=== PATIENT | female | born 1995 | race Caucasian/White ===

== ENCOUNTER 2016-11-13 16:52 | Emergency (ER) | payer OTHER ==
[2016-11-13 17:59] LABS: Hematocrit 32 % (35-47); Hemoglobin 10.7 g/dl (12.0-16.0); Mean Corpuscular HGB Conc 33 g/dl (31-36); Mean Corpuscular Hemoglobin 28 pg (27-31); Mean Corpuscular Volume 83 fL (80-97); Mean Platelet Volume 9 um3 (7.4-10.4); Red Blood Count 3.89 10^6/ul (4.0-5.4); Red Cell Distribution Width 14 % (10.5-15)
[2016-11-13 18:16] LABS: ALT 19 U/L (7-52); AST 21 U/L (13-39); Albumin 4.2 g/dL (3.2-5.2); Alkaline Phosphatase 66 U/L (34-104); Anion Gap 10 mmol/L (2-11); BUN/Creatinine Ratio 14.3 (8-20); Blood Urea Nitrogen 9 mg/dL (6-24); CO2 Carbon Dioxide 25 mmol/L (22-32); Calcium 9.7 mg/dL (8.6-10.3); Chloride 100 mmol/L (101-111); EGFR African American 154.9 (>60); EGFR Non-African American 120.5 (>60); Globulin 4.1 g/dL (2-4); Glucose 124 mg/dL (70-100); Potassium 3.5 mmol/L (3.5-5.0); Sodium 135 mmol/L (133-145); Total Protein 8.3 g/dL (6.4-8.9)
[2016-11-13] MEDS ORDERED: Iohexol 300* (CONTRAST) 10 ML SDV IV ONE (18:29)
[2016-11-13] MEDS ORDERED: Ibuprofen TAB* 600 MG PO ONE (18:49)
--- NOTE | 2016-11-13 18:49 | ED ---
Throat Pain/Nasal Congestion - HPI Summary HPI Summary: 21 female presents to ED from [facility] with complaints of left sided cheek/facial swelling and hard mass that began 3 weeks ago and has not resolved. Patient states she is on week 2 of clindamycin and applying cool compresses without relief. Patient has been experiencing fevers of 100-102 over the past 5-[address] of face back when it first began without findings other than "soft tissue swelling". Also had appointment with oral surgeon who stated it was not related to her dentition. States she was studying abroad in [facility] over the summer and about 1 week later patient developed the facial swelling. Is currently being worked up with autoimmune disorder but has not specifically been diagnosed with anything. Mother is a hospitalist and was able to inform of PMHx. Patient also has iron deficiency anemia. No other PMHx. Patient states sometimes the mass becomes painful and other times it does not. She also states it moves and has changed in size, getting bigger more recently. Denies difficulty swallowing, difficulty breathing, headache, visual changes, sputum production changes, and discharge. Admits to some intermittent erythema on overlying skin, not currently experiencing. No other symptoms or complaints. Immunizations are UTD. - History of Current Complaint Chief Complaint: EDGeneral Time Seen by Provider: 11/13/16 18:01 Hx Obtained From: Patient Onset/Duration: Sudden Onset, Lasting Weeks, Still Present, Worse Since Severity: Moderate Cough: None - Epiglottits Risk Factors Epiglottis Risk Factors: Negative - Allergies/Home Medications Allergies/Adverse Reactions: Allergies Allergy/AdvReac Type Severity Reaction Status Date / Time peanut Allergy Airway Uncoded 11/13/16 19:36 Obstruction PMH/Surg Hx/FS Hx/Imm Hx Endocrine/Hematology History: Reports: Hx Anemia, Autoimmune Disease - no specific dx, has been worked up since age 5 Denies: Hx Diabetes Respiratory History: Denies: Hx Asthma - Surgical History Surgery Procedure, Year, and Place: "wisdom teeth out" - Immunization History Immunizations Up to Date: Yes Infectious Disease History: No Infectious Disease History: Reports: Traveled Outside the [place] in Last 30 Days - [place] [facility], came back beginning of october 2016 - Family History Known Family History: Positive: None - Social History Alcohol Use: None Substance Use Type: Reports: None Smoking Status (MU): Never Smoked Tobacco Review of Systems Constitutional: Negative Positive: Fever, Fatigue Eyes: Negative Positive: Other - facial swelling, left cheek mass Cardiovascular: Negative Respiratory: Negative Gastrointestinal: Negative Musculoskeletal: Negative Skin: Negative All Other Systems Reviewed And Are Negative: Yes Physical Exam Triage Information Reviewed: Yes Vital Signs On Initial Exam: Initial Vitals Temp Pulse Resp BP Pulse Ox 100.8 F 110 18 110/71 98 11/13/16 17:02 11/13/16 17:02 11/13/16 17:02 11/13/16 17:02 11/13/16 17:02 tachycardia and fever noted, given ibuprofen Vital Signs Reviewed: Yes Appearance: Positive: Well-Appearing, No Pain Distress, Well-Nourished Skin: Positive: Warm, Skin Color Reflects Adequate Perfusion, Dry. Negative: Cold, Cyanosis @, Pale, Erythema @ Head/Face: Positive: Normal Head/Face Inspection - other than facial swelling left mandible/maxillary area, firm mass palpated, no erythema or discharge, non tender to touch Eyes: Positive: Normal, EOMI, JULES, Conjunctiva Clear ENT: Positive: Hearing grossly normal, Pharynx normal, TMs normal, Other - able to open mouth however difficult/limited due to swelling. Negative: Pharyngeal erythema, Nasal congestion, Nasal drainage, TM bulging, TM dull, TM red, Tonsillar swelling, Tonsillar exudate, Trismus, Muffled/hoarse voice, Dental tenderness Dental: Positive: Oropharynx - normal. Negative: Percussion Tenderness @, Gross Decay/Caries @, Dental Fracture @, Abscess @, Cellulitis @ Neck: Positive: Supple, Nontender, No Lymphadenopathy Respiratory/Lung Sounds: Positive: Clear to Auscultation, Breath Sounds Present. Negative: Decreased Breath Sounds, Rales, Rhonchi Cardiovascular: Positive: Normal, RRR, Pulses are Symmetrical in both Upper and Lower Extremities, Tachycardia. Negative: Murmur, Rub Abdomen Description: Positive: Nontender, No Organomegaly, Soft Bowel Sounds: Positive: Present Musculoskeletal: Positive: Normal, Strength/ROM Intact Neurological: Positive: Normal, Sensory/Motor Intact, Alert, Oriented to Person Place, Time, CN Intact II-III, Reflexes Intact, NV Bundle Intact Distally, Normal Gait Psychiatric: Positive: Affect/Mood Appropriate - Lowes Coma Scale Coma Scale Total: 14 Diagnostics - Vital Signs Vital Signs Temp Pulse Resp BP Pulse Ox 11/13/16 17:21 100.3 F 115 16 106/74 99 11/13/16 17:02 100.8 F 110 18 110/71 98 - Laboratory Lab Results: Lab Results 11/13/16 11/13/16 11/13/16 Range/Units 17:47 17:47 17:47 WBC 11.0 H (3.5-10.8) 10^3/ul RBC 3.89 L (4.0-5.4) 10^6/ul Hgb 10.7 L (12.0-16.0) g/dl Hct 32 L (35-47) % MCV 83 (80-97) fL MCH 28 (27-31) pg MCHC 33 (31-36) g/dl RDW 14 (10.5-15) % Plt Count 311 (150-450) 10^3/ul MPV 9 (7.4-10.4) um3 Neut % (Auto) 79.8 (38-83) % Lymph % (Auto) 12.4 L (25-47) % Mitchell % (Auto) 7.3 (1-9) % Eos % (Auto) 0.2 (0-6) % Baso % (Auto) 0.3 (0-2) % Absolute Neuts (auto) 8.8 H (1.5-7.7) 10^3/ul Absolute Lymphs (auto) 1.4 (1.0-4.8) 10^3/ul Absolute Monos (auto) 0.8 (0-0.8) 10^3/ul Absolute Eos (auto) 0 (0-0.6) 10^3/ul Absolute Basos (auto) 0 (0-0.2) 10^3/ul Absolute Nucleated RBC 0 10^3/ul Nucleated RBC % 0 Sodium 135 (133-145) mmol/L Potassium 3.5 (3.5-5.0) mmol/L Chloride 100 L (101-111) mmol/L Carbon Dioxide 25 (22-32) mmol/L Anion Gap 10 (2-11) mmol/L BUN 9 (6-24) mg/dL Creatinine 0.63 (0.51-0.95) mg/dL Est GFR ( Amer) 154.9 (>60) Est GFR (Non-Af Amer) 120.5 (>60) BUN/Creatinine Ratio 14.3 (8-20) Glucose 124 H (70-100) mg/dL Lactic Acid 1.6 (0.5-2.0) mmol/L Calcium 9.7 (8.6-10.3) mg/dL Total Bilirubin 0.50 (0.2-1.0) mg/dL AST 21 (13-39) U/L ALT 19 (7-52) U/L Alkaline Phosphatase 66 (34-104) U/L C-React Prot High Sens 89.70 mg/L Total Protein 8.3 (6.4-8.9) g/dL Albumin 4.2 (3.2-5.2) g/dL Globulin 4.1 H (2-4) g/dL Albumin/Globulin Ratio 1.0 (1-3) Beta HCG, Quant < 0.60 mIU/mL Result Diagrams: 11/13/16 17:47 11/13/16 17:47 Lab Statement: Any lab studies that have been ordered have been reviewed, and results considered in the medical decision making process. - CT maxillofacial w CT Interpretation: Positive (See Comments) - Extensive nonspecific soft tissue edema at the LEFT face beginning below the malar eminence and extending through the chin with involvement of the subcutaneous fat as well as the platysma muscle and buccal space. No loculated abscess collection evident. Negative for soft tissue plane emphysema. CT Interpretation Completed By: Radiologist Re-Evaluation - Re-Evaluation First Eval Re-Evaluation Time: 20:50 Change: Unchanged - patient still feeling ok, fever was better after ibuprofen. updated on results and plan, is in agreement and understands EENT Course/Dx - Course Course Of Treatment: labs, blood culture and CT maxillofacial obtained. Labs unremarkable besides patient's chronic iron deficiency anemia. given ibuprofen for fever/swelling. immunizations are UTD. CT showed soft tissue swelling involving muscle and subcutaneous fat. Spoke with Dr Hummel about patient consult, as well as patient, who feel labwork results, patient's ability for close follow up and presentation of patient that she is safe for discharge to follow up, ENT, Rhuem and Infectious disease. Has appointment with ENT friday and rheumatology on Friday. [facility]. Spoke with Dr Collado from [facility] at 9:00pm who was updated and is also in agreement with this plan. Patient is aware of worsening signs and symptoms to watch out for and to return if occur. Complete clindamycin last few doses, ibuprofen/tylenol and cool compresses. - Differential Diagnoses Differential Diagnoses: Dental Abscess, Other - mumps, parotiditis, - Diagnoses Provider Diagnoses: Swelling of left side of face - Provider Notifications Discussed Care Of Patient With: Dr Hummel Time Discussed With Above Provider: 20:50 Instructed by Provider To: Have Pt Call For Appt. - with infectious disease, safe to d/c Discharge - Discharge Plan Condition: Stable Disposition: HOME Referrals: [facility] [Primary Care Provider] - Jeanne WILLINGHAM,Dylan Carnes [Medical Doctor] - Additional Instructions: Please make an appointment and follow up with infectious disease PATRICIA. Be sure to go to ENT and Rheumatology appointment as scheduled. Continue follow up with [facility]. Continue clindamycin and cold compresses. Ibuprofen/tylenol for fever and pain. New symptoms or worsening symptoms please seek medical attention immediately, as discussed.
--- NOTE | 2016-11-13 20:26 | RAD ---
INDICATION: Swollen LEFT cheek for unknown reason. On antibiotics without response. COMPARISON: No relevant prior exams available on the [facility] for comparison. TECHNIQUE: Multidetector CT base of the skull through mandible with 75 mL Omnipaque 300 IV contrast. Multiplanar reformation. REPORT: Artifact from dental amalgam. Extensive soft tissue edema at the LEFT face beginning below the malar eminence and extending through the chin with involvement of the subcutaneous fat as well as the platysma muscle and buccal space. No loculated abscess collection evident. Negative for soft tissue plane emphysema. Unremarkable parotid and submandibular glands. Unremarkable partially visualized thyroid gland. Negative for lymphadenopathy by short axis size criteria. Unremarkable pharyngeal mucosal space contours as well as the false and true vocal cords and visualized subglottic airway. Symmetric unremarkable parapharyngeal fat. Patent bilateral internal jugular veins. The orbital and maxillary sinus margins, zygomatic arches, lamina papyracea, base of the maxilla, pterygoid plates, and nasal bones are intact. The mandible is intact. Normal temporal mandibular joint alignment. No focal osseous lesions evident. Unremarkable orbital contents. No abnormality of the visualized brain through the level of the thalami superiorly. Clear paranasal sinuses and mastoid air spaces. IMPRESSION: Extensive nonspecific soft tissue edema at the LEFT face beginning below the malar eminence and extending through the chin with involvement of the subcutaneous fat as well as the platysma muscle and buccal space. No loculated abscess collection evident. Negative for soft tissue plane emphysema.
[2016-11-13 21:26] VITALS: BP 101/67
== END 2016-11-13 21:25 | disposition home or self-care (01) ==
LOC: ED 16:52
DX: R22.0 Localized swelling, mass and lump, head (principal); R50.9 Fever, unspecified; R53.83 Other fatigue; Z86.2 Personal history of diseases of the blood and blood-forming organs and certain disorders involving the immune mechanism
CPT/HCPCS: 36415; 70487; 80053; 83605; 84702; 85025; 86141; 87040; 99282; A9270-GY; Q9967

== ENCOUNTER 2017-04-04 17:25 | Emergency (ER) | payer OTHER ==
[2017-04-04] MEDS ORDERED: NS 0.9% 1000 ML* 1,000 ML IV ONE (17:45)
[2017-04-04] MEDS ORDERED: Ondansetron INJ* 2 MG/ML VIAL IV ONE (17:45)
[2017-04-04] MEDS ORDERED: Morphine INJ* 4 MG/ML 1 ML CARPUJECT IV ONE (17:45)
[2017-04-04 18:19] LABS: ABS Basophils 0 10^3/ul (0-0.2); ABS Eosinophils 0.1 10^3/ul (0-0.6); ABS Lymphocytes 1.4 10^3/ul (1.0-4.8); ABS Monocytes 0.6 10^3/ul (0-0.8); ABS Neutrophils 5.9 10^3/ul (1.5-7.7); ABS Nucleated RBC 0 10^3/ul; Eosinophil % 0.9 % (0-6); Hematocrit 35 % (35-47); Hemoglobin 11.8 g/dl (12.0-16.0); Lymphocyte % 17.8 % (25-47); Mean Corpuscular HGB Conc 34 g/dl (31-36); Mean Corpuscular Hemoglobin 28 pg (27-31); Mean Corpuscular Volume 84 fL (80-97); Mean Platelet Volume 10 um3 (7.4-10.4); Nucleated Red Blood Cells % 0.1; Platelet Count 208 10^3/ul (150-450); Red Blood Count 4.17 10^6/ul (4.0-5.4); Red Cell Distribution Width 13 % (10.5-15); White Blood Count 8.1 10^3/ul (3.5-10.8)
[2017-04-04 18:37] LABS: INR 1.11 (0.77-1.02)
[2017-04-04 18:38] LABS: EGFR Non-African American 112.2 (>60)
[2017-04-04] MEDS ORDERED: Iohexol 300* (CONTRAST) 10 ML SDV IV ONE (19:05)
[2017-04-04 20:32] VITALS: BP 104/67
--- NOTE | 2017-04-04 20:40 | RAD ---
Indication: Right lower quadrant pain. Contrast: Administered 73.1 ml of OMNIPAQUE 300 mg/ml CT of the abdomen and pelvis was performed after oral and IV contrast administration. Coronal and sagittal reconstructed images were obtained. The lung bases demonstrate no pleural fluid, nodules or masses. Heart is of normal size without evidence of pericardial effusion. Liver is normal in size. No focal lesions or intrahepatic duct dilatation is noted. The gallbladder demonstrates no calcified gallstones. No pericholecystic fluid or wall thickening. The pancreas demonstrates no mass or pancreatic duct dilatation. The spleen is normal in size. No adrenal lesions are noted. The kidneys demonstrate symmetric nephrograms. No hydronephrosis is noted. No retroperitoneal lymphadenopathy noted. Aorta and inferior vena cava are unremarkable. The appendix is retrocecal in nature and appears to be within normal limits with contrast and air noted within the appendix. There is a contrast and air-filled stomach. There is circumferential wall thickening of the gastric antrum and the possibility of antral gastritis should BE considered. The uterus and ovaries are unremarkable. The urinary bladder is distended. No free fluid is identified. IMPRESSION: Normal appendix. Air and contrast filled stomach with circumferential wall thickening of the gastric antrum. The possibility of antral gastritis should BE considered.
[2017-04-04 21:38] LABS: Urine Appearance Cloudy; Urine Blood 3+ (Negative); Urine Color Straw; Urine Ketones Negative (Negative); Urine Protein Negative (Negative); Urine Specific Gravity 1.018 (1.010-1.030); Urine Urobilinogen Negative (Negative)
[2017-04-04] MEDS ORDERED: Levofloxacin TAB* 500 MG PO ONE (21:42)
--- NOTE | 2017-04-04 21:52 | ED ---
Chuy Dominguez Jennifer, scribed for Juve Horton on 04/04/17 at 1815 . Abdominal Pain/Female - HPI Summary HPI Summary: The patient is a 21 year old female who presents at the ED with extreme stabbing pain in the lower abdomen that began 1.5 hours ago. She describes the pain as an 8/10 that comes in waves. She additionally complains of vomiting, dizziness, and nausea. The patient has a history of an uncharacterized autoimmune disease, Crohns disease, anemia, and kidney stones. - History of Current Complaint Chief Complaint: EDAbdPain Stated Complaint: ABD PAIN Time Seen by Provider: 04/04/17 17:34 Hx Obtained From: Patient, Family/Plant [employer] - Mother was on the phone Hx Last Menstrual Period: "March" Onset/Duration: Lasting Hours - 1.5 hours ago Timing: Constant Severity Initially: Severe Severity Currently: Severe Pain Intensity: 8 Pain Scale Used: 0-10 Numeric Location: Discrete At: LUQ, Discrete At: LLQ Radiates: No Character: Sharp Aggravating Factor(s): Nothing Alleviating Factor(s): Nothing Associated Signs and Symptoms: Positive: Other: - Vomiting, dizziness, nausea Allergies/Adverse Reactions: Allergies Allergy/AdvReac Type Severity Reaction Status Date / Time peanut Allergy Airway Uncoded 11/13/16 19:36 Obstruction PMH/Surg Hx/FS Hx/Imm Hx Endocrine/Hematology History: Reports: Hx Anemia Denies: Hx Diabetes Respiratory History: Denies: Hx Asthma - Surgical History Surgery Procedure, Year, and Place: "wisdom teeth out" Infectious Disease History: No Infectious Disease History: Denies: Traveled Outside the [place] in Last 30 Days - Family History Known Family History: Positive: Diabetes - Social History Alcohol Use: None Substance Use Type: Reports: None Smoking Status (MU): Never Smoked Tobacco Review of Systems Positive: Abdominal Pain, Vomiting, Nausea Neurological: Other - Dizziness All Other Systems Reviewed And Are Negative: Yes Physical Exam - Summary Physical Exam Summary: Appearance: Well appearing, no pain distress Skin: warm, dry, reflects adequate perfusion Head/face: normal Eyes: EOMI, JULES ENT: normal Neck: supple, non-tender Respiratory: CTA, breath sounds present Cardiovascular: RRR, pulses symmetrical Abdomen: Tenderness of the right and left lower quadrant. soft Bowel: present Musculoskeletal: normal, strength/ROM intact Neuro: normal, sensory motor intact, A&Ox3 Triage Information Reviewed: Yes Vital Signs On Initial Exam: Initial Vitals Temp Pulse Resp BP Pulse Ox 98.7 F 104 18 91/56 99 04/04/17 17:26 04/04/17 17:26 04/04/17 17:26 04/04/17 17:26 04/04/17 17:26 Vital Signs Reviewed: Yes Diagnostics - Vital Signs Vital Signs Temp Pulse Resp BP Pulse Ox 04/04/17 17:36 88 98 04/04/17 17:35 105/65 04/04/17 17:26 98.7 F 104 18 /56 99 - Laboratory Lab Results: Lab Results 04/04/17 04/04/17 04/04/17 Range/Units 18:02 18:02 18:02 WBC 8.1 (3.5-10.8) 10^3/ul RBC 4.17 (4.0-5.4) 10^6/ul Hgb 11.8 L (12.0-16.0) g/dl Hct 35 (35-47) % MCV 84 (80-97) fL MCH 28 (27-31) pg MCHC 34 (31-36) g/dl RDW 13 (10.5-15) % Plt Count 208 (150-450) 10^3/ul MPV 10 (7.4-10.4) um3 Neut % (Auto) 73.4 (38-83) % Lymph % (Auto) 17.8 L (25-47) % Castro % (Auto) 7.4 (1-9) % Eos % (Auto) 0.9 (0-6) % Baso % (Auto) 0.5 (0-2) % Absolute Neuts (auto) 5.9 (1.5-7.7) 10^3/ul Absolute Lymphs (auto) 1.4 (1.0-4.8) 10^3/ul Absolute Monos (auto) 0.6 (0-0.8) 10^3/ul Absolute Eos (auto) 0.1 (0-0.6) 10^3/ul Absolute Basos (auto) 0 (0-0.2) 10^3/ul Absolute Nucleated RBC 0 10^3/ul Nucleated RBC % 0.1 INR (Anticoag Therapy) 1.11 H (0.77-1.02) APTT 29.5 (26.0-36.3) seconds Sodium 136 (133-145) mmol/L Potassium 3.5 (3.5-5.0) mmol/L Chloride 104 (101-111) mmol/L Carbon Dioxide 23 (22-32) mmol/L Anion Gap 9 (2-11) mmol/L BUN 9 (6-24) mg/dL Creatinine 0.67 (0.51-0.95) mg/dL Est GFR ( Amer) 144.3 (>60) Est GFR (Non-Af Amer) 112.2 (>60) BUN/Creatinine Ratio 13.4 (8-20) Glucose 99 (70-100) mg/dL Lactic Acid (0.5-2.0) mmol/L Calcium 9.0 (8.6-10.3) mg/dL Total Bilirubin 0.50 (0.2-1.0) mg/dL AST 19 (13-39) U/L ALT 12 (7-52) U/L Alkaline Phosphatase 53 (34-104) U/L C-Reactive Protein < 1.00 (< 5.00) mg/L Total Protein 7.2 (6.4-8.9) g/dL Albumin 4.3 (3.2-5.2) g/dL Globulin 2.9 (2-4) g/dL Albumin/Globulin Ratio 1.5 (1-3) Lipase 15 (11.0-82.0) U/L Beta HCG, Quant 0.75 mIU/mL Urine Color Urine Appearance Urine pH (5-9) Ur Specific [place] (1.010-1.030) Urine Protein (Negative) Urine Ketones (Negative) Urine Blood (Negative) Urine Nitrate (Negative) Urine Bilirubin (Negative) Urine Urobilinogen (Negative) Ur Leukocyte Esterase (Negative) Urine WBC (Auto) (Absent) Urine RBC (Auto) (Absent) Ur Squamous Epith Cells (Absent) Urine Bacteria (Absent) Urine Glucose (Negative) 04/04/17 04/04/17 Range/Units 18:02 20:30 WBC (3.5-10.8) 10^3/ul RBC (4.0-5.4) 10^6/ul Hgb (12.0-16.0) g/dl Hct (35-47) % MCV (80-97) fL MCH (27-31) pg MCHC (31-36) g/dl RDW (10.5-15) % Plt Count (150-450) 10^3/ul MPV (7.4-10.4) um3 Neut % (Auto) (38-83) % Lymph % (Auto) (25-47) % Castro % (Auto) (1-9) % Eos % (Auto) (0-6) % Baso % (Auto) (0-2) % Absolute Neuts (auto) (1.5-7.7) 10^3/ul Absolute Lymphs (auto) (1.0-4.8) 10^3/ul Absolute Monos (auto) (0-0.8) 10^3/ul Absolute Eos (auto) (0-0.6) 10^3/ul Absolute Basos (auto) (0-0.2) 10^3/ul Absolute Nucleated RBC 10^3/ul Nucleated RBC % INR (Anticoag Therapy) (0.77-1.02) APTT (26.0-36.3) seconds Sodium (133-145) mmol/L Potassium (3.5-5.0) mmol/L Chloride (101-111) mmol/L Carbon Dioxide (22-32) mmol/L Anion Gap (2-11) mmol/L BUN (6-24) mg/dL Creatinine (0.51-0.95) mg/dL Est GFR ( Amer) (>60) Est GFR (Non-Af Amer) (>60) BUN/Creatinine Ratio (8-20) Glucose (70-100) mg/dL Lactic Acid 2.0 (0.5-2.0) mmol/L Calcium (8.6-10.3) mg/dL Total Bilirubin (0.2-1.0) mg/dL AST (13-39) U/L ALT (7-52) U/L Alkaline Phosphatase (34-104) U/L C-Reactive Protein (< 5.00) mg/L Total Protein (6.4-8.9) g/dL Albumin (3.2-5.2) g/dL Globulin (2-4) g/dL Albumin/Globulin Ratio (1-3) Lipase (11.0-82.0) U/L Beta HCG, Quant mIU/mL Urine Color Straw Urine Appearance Cloudy Urine pH 8.0 (5-9) Ur Specific [place] 1.018 (1.010-1.030) Urine Protein Negative (Negative) Urine Ketones Negative (Negative) Urine Blood 3+ H (Negative) Urine Nitrate Negative (Negative) Urine Bilirubin Negative (Negative) Urine Urobilinogen Negative (Negative) Ur Leukocyte Esterase Trace H (Negative) Urine WBC (Auto) 2+(11-20/hpf) H (Absent) Urine RBC (Auto) 3+(>10/hpf) H (Absent) Ur Squamous Epith Cells Present H (Absent) Urine Bacteria Absent (Absent) Urine Glucose Negative (Negative) Result Diagrams: 04/04/17 18:02 04/04/17 18:02 Lab Statement: Any lab studies that have been ordered have been reviewed, and results considered in the medical decision making process. - CT CT Abdomen/Pelvis CT Interpretation: No Acute Changes - Normal appendix. Air and contrast filled stomach with circumferential wall thickening of the gastric antrum. The possibility of antral gastritis should BE considered. Dr. Horton has reviewed this report. CT Interpretation Completed By: Radiologist Abdominal Pain Fem Course/Dx - Course Course Of Treatment: The patient is a 21 year old female who presents at the ED with extreme stabbing pain in the lower abdomen that began 1.5 hours ago. In the ED, the patient was given IV fluids, Levaquin, Morphine, and Zofran. Bloodwork and Urinalysis were obtained. The patient was diagnosed with UTI and dysmenorrhea. She will be discharged and advised to follow up with her primary care physician. - Diagnoses Differential Diagnosis: Positive: Appendicitis, Constipation, Diverticulitis, Ovarian Cyst, Pancreatitis, Renal Colic, Urinary Tract Infection Provider Diagnoses: UTI (urinary tract infection), Dysmenorrhea Discharge - Discharge Plan Condition: Stable Disposition: HOME Prescriptions: Levofloxacin TAB* [Levaquin TAB*] 500 mg PO DAILY #4 tab Naproxen [Naproxen 500 mg] 500 mg PO Q8H PRN #20 tab MDD 3 PRN Reason: Pain Ondansetron [Zofran 4 MG Odt] 4 mg PO TID #15 tab Patient Education Materials: Dysmenorrhea (ED), Urinary Tract Infection in Women (ED) Referrals: [facility] [Primary Care Provider] - 3 Days Additional Instructions: Follow up with your primary care physician in three days. Return to the emergency department for any new or worsening symptoms. The documentation as recorded by the Chuy barrow Jennifer accurately reflects the service I personally performed and the decisions made by , Juve Horton.
== END 2017-04-04 22:10 | disposition home or self-care (01) ==
LOC: ED 17:25
DX: N39.0 Urinary tract infection, site not specified (principal); N94.6 Dysmenorrhea, unspecified; R11.2 Nausea with vomiting, unspecified; R42 Dizziness and giddiness; R10.9 Unspecified abdominal pain
CPT/HCPCS: 36415; 74177; 80053; 81003; 81015; 83605; 83690; 84702; 85025; 85610; 85730; 86140; 87086; 96374; 96375; 99282; J2270; J2405; Q9967